=== PATIENT | male | born 1935 | race Caucasian/White ===

== ENCOUNTER 2019-06-24 09:40 | Emergency (ER) | payer BC, MEDICARE ==
[~2019-06-24] VITALS: Ht 180.3 cm; Wt 93.0 kg
--- NOTE | 2019-06-24 10:03 | NUR ---
Dr Camacho at the bedside for MSE.
[2019-06-24 10:06] LABS: BASOPHILS # (AUTO) 0.1 K/uL (0.0-8.0); BASOPHILS % (AUTO) 2.4 % (0.0-2.0); EOSINOPHILS # (AUTO) 0.1 K/uL (0.0-0.7); EOSINOPHILS % (AUTO) 2.3 % (0.0-7.0); HEMATOCRIT 32.7 % (36.7-47.1); LYMPHOCYTES # (AUTO) 1.1 K/uL (20.0-40.0); LYMPHOCYTES % (AUTO) 18.6 % (20.5-51.5); MEAN CORPUSCULAR HEMOGLOBIN 33.3 uug (23.8-33.4); MEAN CORPUSCULAR HGB CONC 34 g/dL (32.5-36.3); MEAN CORPUSCULAR VOLUME 99.2 fL (73.0-96.2); MONOCYTES # (AUTO) 0.5 K/uL (2.0-10.0); MONOCYTES % (AUTO) 8.5 % (0.0-11.0); NEUTROPHILS # (AUTO) 3.9 K/uL (1.8-8.9); NEUTROPHILS % (AUTO) 68.2 % (38.5-71.5); PLATELET COUNT (AUTO) 141 K/uL (152-348); WHITE BLOOD COUNT (AUTO) 5.7 K/uL (3.6-10.2)
[2019-06-24 10:15] LABS: CARBON DIOXIDE 27 mmol/L (21-32); CHLORIDE 101 mmol/L (98-107); CREATININE 1.7 mg/dL (0.6-1.3); GLUCOSE 97 mg/dL (74-106); POTASSIUM 3.5 mmol/L (3.5-5.1); UREA NITROGEN, BLOOD 24 mg/dL (7-18)
[2019-06-24 10:23] LABS: ALANINE AMINOTRANSFERASE 74 U/L (16-63); ALKALINE PHOSPHATASE 79 U/L (50-136); ASPARTATE AMINOTRANSFERASE 45 U/L (15-37); BILIRUBIN,DIRECT 0.2 mg/dL (0.0-0.2); BILIRUBIN,TOTAL 0.8 mg/dL (0.2-1.0)
--- NOTE | 2019-06-24 11:15 | NUR ---
Spoke to pt's caregiver, per request, pt to be send home w/ ambulance. Caregiver name ZEESHAN, phone [phone].
--- NOTE | 2019-06-24 11:17 | NUR ---
Placed a call to [facility] for BLS tx, ETA 40 min. Trip #[id number].
--- NOTE | 2019-06-24 11:27 | NUR ---
Patient is resting comfortably in bed with eyes closed, NAD noted.
--- NOTE | 2019-06-24 12:26 | NUR ---
Report given to [employer]. Patient discharged to home in stable conditon. Written and verbal after care instructions given. Pt left ER in stable condition, all belongings sent w/ pt.
[2019-06-24 12:46] VITALS: BP 143/80
== END 2019-06-24 12:49 | disposition home or self-care (01) ==
LOC: ER 09:40
DX: I83.028 Varicose veins of left lower extremity with ulcer other part of lower leg (principal)
CPT/HCPCS: 36415; 70030-TC; 71045; 85025; 85730; 93005; A4663

== ENCOUNTER 2019-07-19 16:00 | Emergency (ER) | payer BC ==
[~2019-07-19] VITALS: Ht 180.3 cm; Wt 93.0 kg
--- NOTE | 2019-07-19 16:13 | NUR ---
MEDICATION RECONCILIATION: Pt and EMS unable to provide any information about current home medications.
[2019-07-19] MEDS ORDERED: IV NORMAL SALINE 500 ML BAG IV ONE (16:15)
--- NOTE | 2019-07-19 16:15 | NUR ---
Patient BIB [id number] from [facility] for reports of low B/P. Speech is clear, speaks in complete sentences. No acute neuro deficits. A/Ox3. Respiratory even and unlabored, no cough no sob. Denies any cp. Denies any n/v/d. Patient in bed, safety precautions implemented per protocol.
[2019-07-19 16:30] LABS: BASOPHILS # (AUTO) 0.1 K/uL (0.0-8.0); BASOPHILS % (AUTO) 1.3 % (0.0-2.0); EOSINOPHILS # (AUTO) 0.1 K/uL (0.0-0.7); EOSINOPHILS % (AUTO) 1.7 % (0.0-7.0); HEMATOCRIT 31.8 % (36.7-47.1); HEMOGLOBIN 10.7 g/dL (12.5-16.3); LYMPHOCYTES # (AUTO) 0.9 K/uL (20.0-40.0); LYMPHOCYTES % (AUTO) 11.1 % (20.5-51.5); MEAN CORPUSCULAR HGB CONC 34 g/dL (32.5-36.3); MEAN CORPUSCULAR VOLUME 97.7 fL (73.0-96.2); MONOCYTES # (AUTO) 0.7 K/uL (2.0-10.0); NEUTROPHILS # (AUTO) 6.6 K/uL (1.8-8.9); NEUTROPHILS % (AUTO) 77.9 % (38.5-71.5); PLATELET COUNT (AUTO) 258 K/uL (152-348); RED BLOOD CELL COUNT(AUTO) 3.25 MIL/uL (4.06-5.63); WHITE BLOOD COUNT (AUTO) 8.5 K/uL (3.6-10.2)
[2019-07-19 16:35] LABS: CARBON DIOXIDE 26 mmol/L (21-32); CHLORIDE 100 mmol/L (98-107); CREATININE 1.4 mg/dL (0.6-1.3); GLUCOSE 146 mg/dL (74-106); POTASSIUM 3.2 mmol/L (3.5-5.1); UREA NITROGEN, BLOOD 31 mg/dL (7-18)
[2019-07-19 16:40] LABS: *BILIRUBIN,URIN NEGATIVE (NEGATIVE); *BLOOD, URINE NEGATIVE (NEGATIVE); *CLARITY,URINE CLEAR (CLEAR); *COLOR,URINE YELLOW (YELLOW); *KETONES,URINE NEGATIVE (NEGATIVE); *UROBILINOGEN,URINE 0.2 E.U./dl (NORMAL); LEUKOCYTE ESTERASE ,URINE NEGATIVE (NEGATIVE); NITRITE, URINE NEGATIVE (NEGATIVE); UGLUCOSE NEGATIVE (NEGATIVE)
[2019-07-19 16:42] LABS: ALANINE AMINOTRANSFERASE 53 U/L (16-63); ALKALINE PHOSPHATASE 103 U/L (50-136); ASPARTATE AMINOTRANSFERASE 32 U/L (15-37); BILIRUBIN,DIRECT 0.2 mg/dL (0.0-0.2); BILIRUBIN,TOTAL 0.6 mg/dL (0.2-1.0); TOTAL PROTEIN, SERUM 6.6 g/dL (6.4-8.2)
--- NOTE | 2019-07-19 16:48 | NUR ---
Patient in bed at lowest position, sr upx2, call light within reach. NAD, blood pressure 95/43--ERMD aware no intervention needed at this time
--- NOTE | 2019-07-19 16:48 | NUR ---
Per ERMD patient will need to be admitted for dehydration and hypotension under telemetry services.
[2019-07-19] MEDS ORDERED: IOHEXOL 350 100 ML INFUS..BTL ONE (17:24)
[2019-07-19] MEDS ORDERED: IV NORMAL SALINE 250 ML IV ONE (17:24)
[2019-07-19] MEDS ORDERED: SWABABLE VALVE TRANSFER SET EA MC ONE (17:24)
--- NOTE | 2019-07-19 17:29 | NUR ---
Patient transported down to CT in stable condition
[2019-07-19] MEDS ORDERED: DICL75TA5 PO (17:55)
[2019-07-19] MEDS ORDERED: LEVO125T8 PO (17:55)
[2019-07-19] MEDS ORDERED: DICL50TA9 PO (17:55)
[2019-07-19] MEDS ORDERED: diclofenac gel TD (17:55)
[2019-07-19] MEDS ORDERED: ATOR80TA PO (17:55)
[2019-07-19] MEDS ORDERED: BENA40TA8 PO (17:55)
[2019-07-19] MEDS ORDERED: TAMS-3 PO (17:55)
[2019-07-19] MEDS ORDERED: POTA10TA10 PO (17:55)
[2019-07-19] MEDS ORDERED: NIFE-34 PO (17:55)
[2019-07-19] MEDS ORDERED: FURO40TA5 PO (17:59)
[2019-07-19] MEDS ORDERED: HYDR25TA4 PO (17:59)
[2019-07-19] MEDS ORDERED: METO50TA16 PO (17:59)
--- NOTE | 2019-07-19 18:39 | NUR ---
Patient may potentially be transferred to [place]. Dr. Frazier from [facility] is the admitting physician. Waiting call back.
--- NOTE | 2019-07-19 18:39 | NUR ---
Radiologist on the line with ERMD discussing patient CT
--- NOTE | 2019-07-19 18:59 | NUR ---
Report endorsed to MADI Ayoub
--- NOTE | 2019-07-19 19:00 | NUR ---
Chinmay Dong number is [phone].
--- NOTE | 2019-07-19 19:37 | NUR ---
Received call back from [employer] [employer], to repage Dr. Frazier.
--- NOTE | 2019-07-19 19:59 | NUR ---
Dr. Tirado speaking with Dr. Frazier.
[2019-07-19] MEDS ORDERED: POTASSIUM CHLORIDE 20 MEQ TAB.PRT.SR PO ONE (22:15)
[2019-07-19] MEDS ORDERED: POTASSIUM CHLORIDE 20 MEQ TAB.PRT.SR ONE (22:24)
--- NOTE | 2019-07-19 22:26 | NUR ---
Called patient's son, Scott, , left message.
--- NOTE | 2019-07-19 22:48 | NUR ---
Called [facility], [id number] Trip#[phone], to transport patient back to [facility].
--- NOTE | 2019-07-20 00:08 | NUR ---
[facility] arrived to ER to transport patient back to [facility]. Report and documentation given to EMT.
[2019-07-20 00:14] VITALS: BP 128/94
== END 2019-07-20 00:15 | disposition home or self-care (01) ==
LOC: ER 16:02
DX: I95.9 Hypotension, unspecified (principal); I25.10 Atherosclerotic heart disease of native coronary artery without angina pectoris; E78.00 Pure hypercholesterolemia, unspecified
CPT/HCPCS: 36415; 71045; 71275; 80048; 80076; 81001; 83605 ×2; 84145; 84484; 85025; 85730; 87040 ×2; 87086; 93005; 99284; Q9967; 70030-TC; A4663; J3490; J7040; J7050